=== PATIENT | male | born 1980 | race Caucasian/White ===

== ENCOUNTER 2016-10-29 23:54 | Emergency (ER) | payer SELFPAY ==
[~2016-10-29] VITALS: Ht 177.8 cm; Wt 92.9 kg
[~2016-10-29 23:54] MED LIST: AUGMENTIN875 MG PO; COUGH & COLD S237 ML PO; FLEXERIL10 MG PO; MOTRIN IB200 MG PO; MOTRIN600 MG PO; MOTRIN800 MG PO; NOHOMEMEDS; PEN-VEE K,VEET250 MG PO; PERCOCET 5/31 TABLET PO; ULTRAM50 MG PO
[2016-10-30 00:36] LABS: CHLORIDE 103 mEq/L (99-109); POTASSIUM 3.8 mEq/L (3.7-5.4); SODIUM 138 mEq/L (136-147)
[2016-10-30 00:37] LABS: GLUCOSE 106 mg/dL (70-99); HEMATOCRIT 42.2 % (38.0-50.0); MCH 30.9 PG (29.0-34.0); MCV 85.8 FL (86-99); MEAN PLAT.VOLUME 10.5 uM^3 (9.0-12.4); PLATELET COUNT 246 K/uL (156-360); RBC DIS.WIDTH-CV 12.4 % (11.8-14.6); RBC DIS.WIDTH-SD 38.8 % (39-53); RED BLOOD COUNT 4.92 M/uL (4.00-5.50); WHITE BLOOD COUNT 7.6 K/uL (4.1-10.2)
[2016-10-30 00:39] LABS: ANION GAP 9 MEQ/L (2-14)
[2016-10-30 00:41] LABS: GFR ESTIMATE (CALCULATED) > 59 mL/min/
[2016-10-30 00:42] LABS: UREA NITROGEN (BUN) 12 mg/dL (9-23)
[2016-10-30 00:45] LABS: TROP-I INTERPRETATION NEGATIVE; TROPONIN-I < 0.01 ng/mL (0.0-0.30)
[2016-10-30] MEDS ORDERED: VENTOLIN HFA18 GM IH (01:59)
[2016-10-30] MEDS ORDERED: PREDNISONE20 MG PO (01:59)
[2016-10-30] MEDS ORDERED: ZITHROMAX Z-PA250 MG PO (01:59)
[2016-10-30 02:36] VITALS: BP 122/96
== END 2016-10-30 02:39 | disposition home or self-care (01) ==
LOC: EME 23:54
DX: J20.9 Acute bronchitis, unspecified (principal); R07.9 Chest pain, unspecified; R20.2 Paresthesia of skin
CPT/HCPCS: 71020; 80048; 84484; 85027; 93005; 94640; 99281; 99285; J7512